=== PATIENT | male | born 1980 | race Caucasian/White ===

== ENCOUNTER 2019-11-27 22:10 | Observation (INO) ==
--- OUTSIDE RECORDS SUMMARY | 2019-11-27 22:12 | External Medical Summary | Continuity of Care Document ---
:1980 Author Name Ivette Grant Address Unavailable Unavailable , Care Team Providers Name Role Phone Anthony Grant Unavailable [email or web address] Active medical history not documented Allergies and Adverse Reactions Allergy history not documented Medications Medications not documented Procedures Procedures not documented Immunizations Immunizations not documented Plan of Treatment Planned Observations Planned Goals not documented Results No Known Results Results not documented
--- OUTSIDE RECORDS SUMMARY | 2019-11-27 22:13 | External Medical Summary | Continuity of Care Document ---
:1980 Author Name Ivette Grant Address Unavailable Unavailable , Care Team Providers Name Role Phone Anthony Grant Unavailable [email or web address] Active medical history not documented Allergies and Adverse Reactions Allergy history not documented Medications Medications not documented Procedures Procedures not documented Immunizations Immunizations not documented Plan of Treatment Planned Observations Planned Goals not documented Results No Known Results Results not documented
[2019-11-27] MEDS ORDERED: cefTRIAXone SODIUM 2,000 MG/70 ML BAG IV STA (22:26)
[2019-11-27] MEDS ORDERED: KETOROLAC TROMETHAMINE 15 MG/ML VIAL IV STA (22:26)
[2019-11-27] MEDS ORDERED: DIPHTHERIA/TETANUS/PERTUSSIS 0.5 ML SYR/VIAL IM ONE (22:26)
[2019-11-27] MEDS ORDERED: SODIUM CHLORIDE 0.9% 1000ML 1,000 ML IV ONE (22:28)
[2019-11-27 22:50] LABS: Basophils # (auto) 0.02 K/uL (0-0.2); Basophils % (auto) 0.2 %; Eosinophils # (auto) 0.07 K/uL (0-0.5); Eosinophils % (auto) 0.6 %; Hematocrit (blood only) 37.4 % (42-52); Hemoglobin 12.7 g/dL (14.0-18.0); Immature Granulocytes # (auto) 0.02 K/uL (0.00-0.02); Immature Granulocytes % (auto) 0.2 %; Lymphocytes # (auto) 1.15 K/uL (1.2-3.4); Lymphocytes % (auto) 9.6 %; Mean Corpuscular Hemoglobin 29.6 pg (25-34); Mean Corpuscular Volume 87.2 fL (80-100); Mean Platelet Volume 10.1 fL (7.4-10.4); Monocytes # (auto) 0.64 K/uL (0.11-0.59); Monocytes % (auto) 5.3 %; Neutrophils # (auto) 10.14 K/uL (1.4-6.5); Neutrophils % (auto) 84.1 %; Platelet Count 216 K/uL (130-400); RDW Coefficient of Variation 13.3 % (11.5-14.5); RDW Standard Deviation 42.5 fL (36.4-46.3); Red Blood Count 4.29 M/uL (4.7-6.1); White Blood Count 12.04 K/uL (4.8-10.8)
--- NOTE | 2019-11-27 22:52 | Emergency Department Note ---
History of Present Illness General Chief complaint: Finger Pain Stated complaint: INFECTED FINGER Time Seen by Provider: 11/27/19 22:15 History of Present Illness Maximum Pain Intensity: 6 This 39 yo presents to the ER complaining of finger infection Location: Left second finger Quality: Swollen Severity: Severe Duration: Past few days Timing: Started a few days ago Context: Swelling got much worse and patient came in Modifying factors: better with rest; worse with activity Patient thinks he might of gotten a splinter in the finger. 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 He states the finger is quite swollen and he cannot bend the finger. He is a type I diabetic. Patient feels achy. No documented fever. Patient denies chest pain, dyspnea, nausea, vomiting, diarrhea. No direct trauma to the finger. Home Medications Home Medications Medication Instructions Recorded Confirmed Type levothyroxine 200 mcg PO QAM 11/27/19 11/28/19 History insulin aspart U-100 [Novolog 0 unit SUBCUT AC 11/28/19 11/28/19 History Flexpen U-100 Insulin] insulin glargine [Lantus Solostar 50 unit SUBCUT HS 11/28/19 11/28/19 History U-100 Insulin] levothyroxine 100 mcg PO WK 11/28/19 11/28/19 History Allergies Allergy/AdvReac Type Severity Reaction Status Date / Time No Known Allergies Allergy Unverified 11/28/19 00:15 Past Med/Surg History Medical History Diabetes Hypothyroidism Surgical History No pertinent past surgical history Social History Smoking Status: Never smoker Feels Safe at Home: Yes Review of Systems A total of 10 systems reviewed and were otherwise negative Physical Exam Vital Signs Vital Signs - 24 hr 11/27/19 22:11 11/27/19 22:25 11/27/19 23:00 Temperature 37.3 C Temperature Source Oral Pulse Rate 103 H Pulse Rate [Finger] 91 H Pulse Rhythm [Finger] Regular Respiratory Rate 20 20 Respiratory Effort / Characteristics Non-Labored Spontaneous Non-Labored Spontaneous Respiratory Depth Normal Respiratory Pattern Regular Blood Pressure 166/85 H Blood Pressure [Right Arm] 148/93 H Blood Pressure Mean 112 Blood Pressure Mean [Right Arm] 111 Blood Pressure Position Sitting Blood Pressure Position [Right Arm] Lying Pulse Oximetry 97 98 97 Oxygen Delivery Method Room Air Room Air Room Air Sepsis Recent Fever Within 48 Hours No Sepsis New/Unexplained Change in Mental Status N/A Sepsis Action Taken by Nursing No Action Required 11/27/19 23:30 11/28/19 00:00 Temperature Temperature Source Pulse Rate Pulse Rate [Finger] 92 H 90 Pulse Rhythm [Finger] Regular Respiratory Rate 18 18 Respiratory Effort / Characteristics Non-Labored Spontaneous Non-Labored Spontaneous Respiratory Depth Normal Normal Respiratory Pattern Regular Regular Blood Pressure Blood Pressure [Right Arm] 145/91 H 147/87 H Blood Pressure Mean Blood Pressure Mean [Right Arm] 109 107 Blood Pressure Position Blood Pressure Position [Right Arm] Lying Lying Pulse Oximetry 97 97 Oxygen Delivery Method Room Air Room Air Sepsis Recent Fever Within 48 Hours Sepsis New/Unexplained Change in Mental Status Sepsis Action Taken by Nursing VITALS: Vitals are noted on the nurse's note and reviewed by myself. Vital signs stable. GENERAL: Pleasant male, in no acute distress, nondiaphoretic, well-developed well-nourished. SKIN: Capillary reflex less than 2 seconds. HEENT: Normocephalic. PERRLA. EOMI. Nares patent. Mucous membranes moist. Neck is supple without nuchal rigidity. HEART: Regular rate and rhythm LUNGS: Clear to auscultation bilaterally without wheezes, rales or rhonchi. No retractions or accessory muscle use. ABDOMEN: Positive bowel sounds x 4. Normal tympanic percussion. Soft, nontender, without masses or organomegaly. Laguna sign negative. No guarding or rebound tenderness. MUSCULOSKELETAL: No gross musculoskeletal defects. Right hand second finger erythematous and edematous extending to the palm. Patient cannot bend the finger. He can extend it but has great pain. No elbow tenderness, no axilla tenderness. No lymph node enlargement to the right eft arm. NEURO: Patient was alert and oriented to person place and time. Normal sensation to light and sharp touch. No focal neurological deficits. Course Administered Medications Discontinued Medications Ceftriaxone Sodium (Rocephin) 2,000 mg in 70 mls @ 140 mls/hr IV NOW STA Stop: 11/27/19 22:55 Last Infusion: 11/27/19 23:22 Dose: 0 mls/hr Documented by: [id number] Admin: 11/27/19 22:52 Dose: 140 mls/hr Documented by: [id number] Sodium Chloride (Nss 1000ml) 1,000 mls @ 999 mls/hr IV .Q1H1M ONE Stop: 11/27/19 23:28 Last Infusion: 11/27/19 23:58 Dose: 0 mls/hr Documented by: [id number] Admin: 11/27/19 22:56 Dose: 999 mls/hr Documented by: [id number] Ketorolac Tromethamine (Ketorolac Tromethamine 15 Mg/Ml Vial) 10 mg IV NOW STA Stop: 11/27/19 22:27 Last Admin: 11/27/19 22:52 Dose: 10 mg Documented by: [id number] Medical Decision Making Medical Records Attestation: I reviewed the patient's medical records. Home Medications Current Medication List: was personally reviewed by me Laboratory Data Attestation: I reviewed the patient's lab results. Result diagrams: 11/27/19 22:25 11/27/19 22:25 Lab Results 11/27/19 11/27/19 11/27/19 Range/Units 22:25 22:25 22:25 WBC 12.04 H (4.8-10.8) K/uL RBC 4.29 L (4.7-6.1) M/uL Hgb 12.7 L (14.0-18.0) g/dL Hct 37.4 L (42-52) % MCV 87.2 (80-100) fL MCH 29.6 (25-34) pg MCHC 34.0 (32-36) g/dL RDW Std Deviation 42.5 (36.4-46.3) fL RDW Coeff of Rajwinder 13.3 (11.5-14.5) % Plt Count 216 (130-400) K/uL MPV 10.1 (7.4-10.4) fL Immature Gran % (Auto) 0.2 % Neut % (Auto) 84.1 % Lymph % (Auto) 9.6 % [place] % (Auto) 5.3 % Eos % (Auto) 0.6 % Baso % (Auto) 0.2 % Neut # (Auto) 10.14 H (1.4-6.5) K/uL Lymph # (Auto) 1.15 L (1.2-3.4) K/uL [place] # (Auto) 0.64 H (0.11-0.59) K/uL Eos # (Auto) 0.07 (0-0.5) K/uL Baso # (Auto) 0.02 (0-0.2) K/uL Immature Gran # (Auto) 0.02 (0.00-0.02) K/uL ESR 18 H (0-14) mm/hr Sodium 139 (136-145) mmol/L Potassium 3.6 (3.5-5.1) mmol/L Chloride 104 (98-107) mmol/L Carbon Dioxide 24 (21-32) mmol/L Anion Gap 11.0 (3-11) BUN 10 (7-18) mg/dl Creatinine 0.93 (0.6-1.4) mg/dl Est Cr Clr Drug Dosing 142.0 ml/min Est GFR ( Amer) 119.4 Est GFR (Non-Af Amer) 103.0 BUN/Creatinine Ratio 11.1 (10-20) Glucose 155 H (70-99) mg/dl Lactate (0.4-2.0) mmol/L Calcium 9.1 (8.5-10.1) mg/dl Total Bilirubin 0.5 (0.2-1) mg/dl AST 40 H (15-37) U/L ALT 31 (12-78) U/L Alkaline Phosphatase 97 (45-117) U/L C-Reactive Protein 0.68 H (0-0.29) mg/dl Total Protein 7.9 (6.4-8.2) gm/dl Albumin 3.9 (3.4-5.0) gm/dl Globulin 4.0 (2.5-4.0) gm/dl Albumin/Globulin Ratio 1.0 (0.9-2) 11/27/19 Range/Units 22:30 WBC (4.8-10.8) K/uL RBC (4.7-6.1) M/uL Hgb (14.0-18.0) g/dL Hct (42-52) % MCV (80-100) fL MCH (25-34) pg MCHC (32-36) g/dL RDW Std Deviation (36.4-46.3) fL RDW Coeff of Rajwinder (11.5-14.5) % Plt Count (130-400) K/uL MPV (7.4-10.4) fL Immature Gran % (Auto) % Neut % (Auto) % Lymph % (Auto) % [place] % (Auto) % Eos % (Auto) % Baso % (Auto) % Neut # (Auto) (1.4-6.5) K/uL Lymph # (Auto) (1.2-3.4) K/uL [place] # (Auto) (0.11-0.59) K/uL Eos # (Auto) (0-0.5) K/uL Baso # (Auto) (0-0.2) K/uL Immature Gran # (Auto) (0.00-0.02) K/uL ESR (0-14) mm/hr Sodium (136-145) mmol/L Potassium (3.5-5.1) mmol/L Chloride (98-107) mmol/L Carbon Dioxide (21-32) mmol/L Anion Gap (3-11) BUN (7-18) mg/dl Creatinine (0.6-1.4) mg/dl Est Cr Clr Drug Dosing ml/min Est GFR ( Amer) Est GFR (Non-Af Amer) BUN/Creatinine Ratio (10-20) Glucose (70-99) mg/dl Lactate 0.8 (0.4-2.0) mmol/L Calcium (8.5-10.1) mg/dl Total Bilirubin (0.2-1) mg/dl AST (15-37) U/L ALT (12-78) U/L Alkaline Phosphatase (45-117) U/L C-Reactive Protein (0-0.29) mg/dl Total Protein (6.4-8.2) gm/dl Albumin (3.4-5.0) gm/dl Globulin (2.5-4.0) gm/dl Albumin/Globulin Ratio (0.9-2) Imaging Data Attestation: I personally reviewed and interpreted this imaging study as follows: MDM Narrative Prior records reviewed and summarized as above. Triage Nursing notes reviewed. Additional history obtained from family. The patient's history was concerning for swelling and redness of the skin. Differential diagnosis: Etiologies such as tendon infection, cellulitis, abscess, MRSA infection, DVT, necrotizing fasciitis, dermatitis, drug eruption, as well as others were entertained.. Physical examination: As above ER treatment provided: Rocephin, Toradol On reassessment the patient felt better. Diagnostics interpreted by me: The labs revealed mild leukocytosis, mildly elevated inflammatory markers Blood cultures pending, wound culture pending Negative lactic acid Imaging studies: Finger x-ray with soft tissue swelling without fracture or foreign body per my interpretation Consultation: A consultation was placed with orthopedics, Dr. Love. The case was discussed and diagnostics were reviewed. He recommends splint, elevation and medical a dmission. He wants the patient n.p.o. after midnight for possible surgical evaluation. I spoke to Dr. Alvarado and will evaluate and admit the patient. The patient was evaluated in the ER for further treatment. Splinting Indication: Hand infection Location: Right hand Verbal consent obtained. Risks and benefits were explained with the usual customary discussion. The injured extremity was identified. The patient was prepped and measured for the placement of a volar ortho-glass splint. Splint applied in the standard fashion over a layer of webril and secured using an elastic bandage. Set into a position of function. Normal neurovascular status after placement verified by me. The patient tolerated the procedure well and the care of the splint was discussed with the patient/family. No complications. This appears to be cellulitis of the right second finger with concerns for ten don involvement. Patient cannot fully extend or bend the finger. Patient was given antibiotics. Medicine and orthopedics were consulted. He will be admitted. Patient is agreeable. By the evaluation outlined above emergent etiologies such as abscess, necrotizing fasciitis, DVT, as well as others were deemed relatively unlikely. The pt informed about the findings as listed above. All questions were answered and pleased with the treatment. The chart was completed utilizing [employer] voice recognition software. Grammatical errors, random word insertions, pronoun errors, and incomplete sentences are an occassional consequence of this system due to software limitations, ambient noise, and hardware issues. Any formal questions or concerns about the content, text, or information contained within the body of this dictation should be directly addressed to the physician educational assistant for clarification. Impression & Plan Cellulitis of finger of right hand Discharge Plan Visit Data Chief Complaint: Finger Pain Stated Complaint: INFECTED FINGER ED Provider: Dov Domingo ED Midlevel Provider: Mady Dunham Discharge Problem: Cellulitis of finger of right hand Patient Disposition: Being Evaluated by Hospitalist Condition: Good Forms Stand Alone Forms: [facility] Prescriptions Prescriptions: No Action levothyroxine 200 mcg tablet 200 mcg PO QAM RF: 0 levothyroxine 200 mcg tablet 100 mcg PO WK RF: 0 Lantus Solostar U-100 Insulin 100 unit/mL (3 mL) insulin pen 50 unit SUBCUT HS RF: 0 insulin aspart U-100 [Novolog Flexpen U-100 Insulin] 100 unit/mL (3 mL) insulin pen 0 unit SUBCUT AC RF: 0 Referrals Referrals: Philipp Linder MD [Primary Care Provider] -
[2019-11-27 23:04] LABS: Albumin Level 3.9 gm/dl (3.4-5.0); BUN Creatinine Ratio 11.1 (10-20); C Reactive Protein 0.68 mg/dl (0-0.29); Calcium 9.1 mg/dl (8.5-10.1); Est GFR (African American) 119.4; Potassium 3.6 mmol/L (3.5-5.1)
[2019-11-27 23:07] LABS: Bilirubin,Total 0.5 mg/dl (0.2-1); Total Protein 7.9 gm/dl (6.4-8.2)
--- NOTE | 2019-11-27 23:44 | Orthopedic Consultation ---
Date of Consultation November 27, 2019 Assessment & Plan (1) Cellulitis of finger of right hand: On exam this morning, there was no evidence of fusiform swelling or other signs for urgent flexor tenosynovitis. Given the described dramatic improvement with elevation antibiotics overnight, I like to see how he does the rest the day. Canceled n.p.o. I will reevaluate on exam this afternoon. Continue parenteral antibiotics. Splint was adjusted. The splint is for relative soft tissue mobilization. Strict elevation is indicated. History of Present Illness Reason for Consultation: Soft tissue infection of the hand History of Present Illness 39-year-old type I diabetic reports has had 1 day of progressive redness and swelling to his index finger after sustaining a punctate injury. He is unsure of how but he thinks he may have gotten a splinter was doing some household work. He has had no history of similar symptoms. Does not have a history of soft tissue infections. He denies any numbness or tingling. He was admitted for possible flexor tenosynovitis versus cellulitis of the index finger. Allergies Allergy/AdvReac Type Severity Reaction Status Date / Time No Known Allergies Allergy Unverified 11/28/19 00:15 Home Medications Home Medications Medication Instructions Recorded Confirmed Type levothyroxine 200 mcg PO QAM 11/27/19 11/28/19 History insulin aspart U-100 [Novolog 0 unit SUBCUT AC 11/28/19 11/28/19 History Flexpen U-100 Insulin] insulin glargine [Lantus Solostar 50 unit SUBCUT HS 11/28/19 11/28/19 History U-100 Insulin] levothyroxine 100 mcg PO WK 11/28/19 11/28/19 History Patient History Medical History Diabetes Hypothyroidism Surgical History No pertinent past surgical history Social History Smoking Status: Never smoker Hx Alcohol Use: Yes Alcohol type: wine Hx Substance Use: No Preferred Language: Occitan Communication Ability: Effective Home School Coordinator Required: No Beliefs That Will Affect Care: Confucianism Confucianism Beliefs: Gnosticism Temple, no current practices as it is not Lent Current Living Situation: Family Other Information That Helps Us Care for You: Yes (self-described "germophobe") Feels Safe at Home: Yes Safety Concerns: Feels Safe At This Time Assistive Devices: None Assistive Devices Comment: Front tooth fake- has bridge Review of Systems Review of Systems: All systems reviewed & are unremarkable except as noted in HPI & below Respiratory: no dyspnea and no pain on inspiration Cardiovascular: no chest pain and no lightheadedness Gastrointestinal: no nausea and no vomiting Musculoskeletal: no back pain and no neck pain Integumentary: no rash and no lesions Neurologic: no numbness and no paresthesia Physical Exam Physical Exam: Right upper extremity: The hand has diffuse edema. The edema is centered over the index finger. There is a punctate wound on the ulnar palmar aspect. There is no active drainage. He has guarded motion of his IP joints. He has near full motion of his MP joint. He is mildly tender along the course of the flexor tendon. There is no fusiform swelling. There is no areas of fluctuance on palpation. Sensation is grossly intact to light touch. Constitutional: well developed and well nourished; no acute distress and not intoxicated appearing ENMT: external ear and nose normal, oropharynx normal Respiratory: normal respiratory effort; no respiratory distress Cardiovascular: Extremities: normal capillary refill; no edema Skin: no rashes, warm and dry Psychiatric: A+Ox3, euthymic affect Results & Data ([facility]) Vital Signs (Past 12 Hours) Vital Signs Temp Pulse Resp BP Pulse Ox 11/27/19 22:25 98 11/27/19 22:11 37.3 C 103 H 20 166/85 H 97 Radiographs of the index finger show no foreign bodies. PG Care Time/CCT Total # of Minutes Spent Total Time Spent with Patient: Total time spent is greater than 50% in coordination of care (as documented) at patient's floor/unit and/or counseling patient: Coding Level of Care Code 54854 Inpt Consult Level 3 Diagnoses Cellulitis of finger of right hand L03.011
[2019-11-28] MEDS ORDERED: DIPHTHERIA/TETANUS/PERTUSSIS 0.5 ML SYR/VIAL IM ONE (00:56)
[2019-11-28] MEDS ORDERED: MoRPHine SULFATE 4 MG/ML 1 ML CARP\\VIAL IV PRN (01:54)
[2019-11-28] MEDS ORDERED: SODIUM CHLORIDE 0.9% 1000ML 1,000 ML IV SCH ×2 (01:54→21:30)
[2019-11-28] MEDS ORDERED: PIPERACILL/TAZOBAC CONSULT ACTIVE PRN (01:54)
[2019-11-28] MEDS ORDERED: Nursing to Pharmacy Communication SCH ×3 (02:00→23:30)
[2019-11-28] MEDS: ONDANSETRON INJ 2 MG/ML 2 ML VIAL IV PRN ×2 (02:18→09:40)
[2019-11-28] MEDS ORDERED: GLUCOSE 40% GEL 15 GM TUBE PO PRN (02:30)
[2019-11-28] MEDS ORDERED: DEXTROSE 50% 50 ML SYRINGE IV PRN (02:30)
[2019-11-28] MEDS ORDERED: GLUCOSE 10 TABS/TUBE PO PRN (02:30)
[2019-11-28] MEDS ORDERED: GLUCAGON FOR INJ 1 MG VIAL SQ PRN (02:30)
[2019-11-28] MEDS ORDERED: CARBOHYDRATES FOR HYPOGLYCEMIA PO PRN (02:30)
[2019-11-28] MEDS ORDERED: PIPERACILLIN/TAZOBACTAM 3.375 GM in DEXTROSE 5% 100 ML IV SCH (02:30)
[2019-11-28] MEDS: ACETAMINOPHEN 325 MG TAB PO PRN ×2 (02:40→11:17)
--- NOTE | 2019-11-28 02:42 | History and Physical Report ---
DATE OF ADMISSION: 11/28/2019 CHIEF COMPLAINT: Right index finger infection. HISTORY OF PRESENT ILLNESS: A 39-year-old male with past medical history significant for type 1 diabetes, hypothyroidism, Lyme disease, who presents with a right index finger infection. The patient was working on the floor of the house when he had a splinter injury to his right index finger last Thursday. He was keeping an eye on it. He was also working on the bathrooms . Yesterday the finger got swollen and he was having pain and also felt some chills and nausea, so he came to the ER. Evaluated by ortho, recommended IV antibiotics and to be evaluated in the a.m. and if not getting better, plan for I and D in the a.m. He received Toradol. Currently, pain is under control. Resting comfortably and hemodynamically stable. Denies any other complaints. The nausea is improved. No fevers, no chest pain, no shortness of breath, no cough, no headache, no blurred vision, no earache, no runny nose, no sore throat, no dysphagia, no abdominal pain. Normal bowel and bladder movements. No rashes. No edema. ALLERGIES: No known drug allergies. PAST MEDICAL HISTORY: As mentioned above. PAST SURGICAL HISTORY: None. MEDICATIONS: The patient is on Lantus SoloSTAR 50 units subQ at bedtime, levothyroxine 200 mcg p.o. daily and 100 mcg once a week, insulin NovoLog FlexPen a.c. FAMILY HISTORY: Significant for father had clotting disorder, prostate cancer; mother has bicuspid valve; sister had thyroid disorder. SOCIAL HISTORY: . No smoking. Alcohol 2-3 times a week. No drug use. REVIEW OF SYSTEMS: As per HPI. Rest of the review of systems negative. PHYSICAL EXAMINATION: GENERAL: The patient is of moderate build, not in acute distress. VITAL SIGNS: Temperature 37.3, pulse 90, respiratory rate 18, blood pressure 147/87, oxygen 97% on room air. HEENT: No pallor. Pupils equal, round, reactive to light. Oral mucosa moist. NECK: No neck masses seen. CARDIOVASCULAR: S1, S2 heard, regular rate and rhythm, no murmur, no gallop. RESPIRATORY SYSTEM: Normal AP diameter. No accessory muscle use. No wheezing, no crackles. ABDOMEN: Soft, bowel sounds present, nontender. No distention. CENTRAL NERVOUS SYSTEM: Cranial nerves II-XII grossly intact, nonfocal. EXTREMITIES: Right hand and arm is in dressing and wrapped. No edema or erythema seen in the lower extremity. LABORATORY DATA: WBC 12.04, hemoglobin 12.7, hematocrit 37.4, platelets 216. ESR 18. Sodium 139, potassium 3.6, chloride 104, bicarbonate 24, BUN 10, creatinine 0.9, serum glucose 155. Lactate 0.8, calcium 9.1, total bilirubin 0.5, AST 40, ALT 31, alkaline phosphatase 95. C-reactive protein 0.6. ASSESSMENT AND PLAN: This is a 39-year-old male who presents with right index finger infection. 1. Right index finger infection with history of type 1 diabetes. Seen by ortho and plan to continue iv abx and to be reevaluated in am for need for I and D. . Received Rocephin in the ER. Will continue with IV Zosyn. Will follow the cultures. If no improvement, plan for I and D in a.m. Currently n.p.o. Pain control, IV fluids. 2. Diabetes. Continue his home Lantus and sliding scale. If continue to be npo tomorrow need to cut his long acting insulin. 3. Hypothyroidism. Continue Synthroid. 4. Deep venous thrombosis prophylaxis, sequential compression devices. 5. Disposition: Observation in medical floor. Expect to discharge home and follow with family doctor. Level 1 full code. MTDD
[2019-11-28] MEDS ORDERED: INSULIN ASPART 100 UNITS/ML 3 ML PEN SC SCH (06:00)
[2019-11-28] MEDS: LEVOTHYROXINE SODIUM 200 MCG TABLET PO SCH (06:21)
[2019-11-28] MEDS ORDERED: LEVOTHYROXINE SODIUM 200 MCG TABLET PO SCH (06:30)
--- NOTE | 2019-11-28 06:59 | XRay Report ---
XR finger(s) RT min 2V CLINICAL HISTORY: Infection. Possible foreign body. COMPARISON: None. DISCUSSION: There is soft tissue swelling. No fractures are visualized. No foreign bodies are delinea jefe. There are no destructive lesions. IMPRESSION: 1. No acute fractures 2. No radiopaque foreign bodies identified 3. Soft tissue swelling ACT 112: Negative or not required by law. Electronically signed by: Vasiliy Hudson M.D. 11/28/2019 6:57 AM
[2019-11-28 07:08] LABS: Basophils # (auto) 0.02 K/uL (0-0.2); Basophils % (auto) 0.2 %; Eosinophils # (auto) 0.03 K/uL (0-0.5); Eosinophils % (auto) 0.3 %; Hematocrit (blood only) 37.5 % (42-52); Hemoglobin 12.3 g/dL (14.0-18.0); Immature Granulocytes # (auto) 0.01 K/uL (0.00-0.02); Immature Granulocytes % (auto) 0.1 %; Lymphocytes # (auto) 1.17 K/uL (1.2-3.4); Lymphocytes % (auto) 11.1 %; Mean Corpuscular Hemoglobin 28.9 pg (25-34); Mean Corpuscular Hgb Conc 32.8 g/dL (32-36); Mean Corpuscular Volume 88.2 fL (80-100); Mean Platelet Volume 10.4 fL (7.4-10.4); Monocytes # (auto) 0.56 K/uL (0.11-0.59); Monocytes % (auto) 5.3 %; Neutrophils # (auto) 8.71 K/uL (1.4-6.5); Platelet Count 221 K/uL (130-400); RDW Coefficient of Variation 13.6 % (11.5-14.5); RDW Standard Deviation 44.3 fL (36.4-46.3); Red Blood Count 4.25 M/uL (4.7-6.1)
[2019-11-28] MEDS: PIPERACILLIN/TAZOBACTAM 3.375 GM in DEXTROSE 5% 100 ML IV SCH ×3 (07:35→23:14)
[2019-11-28 07:43] LABS: BUN Creatinine Ratio 9.8 (10-20); Calcium 8.4 mg/dl (8.5-10.1); Creatinine Clr Calc Pharmacy 148.9 ml/min; Est GFR (African American) 124.8; Est GFR (Non-African American) 107.7; Magnesium 1.8 mg/dl (1.8-2.4); Potassium 3.5 mmol/L (3.5-5.1)
[2019-11-28 07:46] LABS: Estimated Average Glucose 183 mg/dl
[2019-11-28] MEDS ORDERED: POTASSIUM CHLORIDE 20 MEQ TABCR PO STA (08:39)
--- NOTE | 2019-11-28 08:44 | Hospitalist Progress Note ---
Date of Service November 28, 2019 Assessment & Plan (1) Cellulitis of finger of right hand: -as per history and physical "A 39-year-old male with past medical history significant for type 1 diabetes, hypothyroidism, Lyme disease, who presents with a right index finger infection. The patient was working on the floor of the house when he had a splinter injury to his right index finger last Thursday." -Received Rocephin in the ER, 11/27/2019 cultures are pending results -admitting nocturnalist upgraded the antibiotic to IV Zosyn -orthopedics following the patient. patient reports that he was been seen by orthopedic service there are no plans for any incision and drainage today on 11/28/2019. Continue the IV Zosyn, prn acetaminophen for fever or pain. (2) Type 1 diabetes mellitus: -at home he is usually on Lantus 50 units qhs with sliding scale insulin -since it is uncertain whether patient will need Incision and drainage on 11/29/2019, will tentatively schedule the Lantus as 25 units qhs for now (3) Hypothyroidism: -continue home dose levothyroxine Deep venous thrombosis prophylaxis, sequential compression devices. Full Code Admission and Anticipated Discharge Date Admission Date: November 28, 2019 Subjective orthopedics following the patient. patient reports that he was been seen by orthopedic service there are no plans for any incision and drainage today on 11/28/2019. Continue the IV Zosyn, prn acetaminophen for fever or pain. Patient denies any acute shortness of breath today. breathing on room air. no chest pain. no abdomen pain. no other acute symptoms Review of Systems Review of Systems: All systems reviewed & are unremarkable except as noted in Subjective Physical Exam Constitutional: comfortable Eyes: PERRL, conjunctivae normal, anicteric sclerae EOM intact bilaterally ENMT: external ear and nose normal, oropharynx normal Neck: normal visual inspection Respiratory: normal respiratory effort, lungs clear to auscultation Cardiovascular: Rate/Rhythm: regular rate Gastrointestinal (Abdomen): normal bowel sounds, soft, nontender, no hepatosplenomegaly Musculoskeletal: right upper extremity splint Neurologic: PERRL, EOMI, accommodation nl, no face palsy, no dysarthria Psychiatric: A+Ox3, euthymic affect Results & Data Results & Data ([facility]) Vital Signs (Past 12 Hours) Vital Signs Temp Pulse Pulse Resp BP BP Pulse Ox 09/21/20 01:58 38 C H 89 16 154/85 H 97 11/28/19 00:00 90 18 147/87 H 97 11/27/19 23:30 92 H 18 145/91 H 97 11/27/19 23:00 91 H 20 148/93 H 97 11/27/19 22:25 98 11/27/19 22:11 37.3 C 103 H 20 166/85 H 97
[2019-11-28] MEDS: MAGNESIUM OXIDE 400 MG TAB PO SCH (09:40)
[2019-11-28] MEDS: INSULIN ASPART 100 UNITS/ML 3 ML PEN SC SCH ×3 (13:02→21:37)
[2019-11-28] MEDS ORDERED: KETOROLAC TROMETHAMINE 15 MG/ML VIAL IV ONE (13:11)
[2019-11-28] MEDS: SENNA 8.6 MG TAB PO SCH (13:58)
--- NOTE | 2019-11-28 14:02 | XRay Report ---
RIGHT FOREARM 2 VIEWS CLINICAL HISTORY: Puncture wound in the hand. Infection. FINDINGS: AP and lateral views of the right forearm are obtained. No prior studies are available for comparison at the time of dictation. The skeletal structures are well mineralized. There is no radiog raphic evidence of forearm fracture. The elbow and wrist joints are grossly maintained. Mild soft tis margi edema is suggested in the distal forearm. No subcutaneous gas or radiodense foreign body is ident ified. IMPRESSION: Soft tissue swelling with no acute bony abnormality identified. Electronically signed by: Rufino Mora M.D. 11/28/2019 2:00 PM
--- NOTE | 2019-11-28 14:04 | XRay Report ---
RIGHT HUMERUS 2 VIEWS CLINICAL HISTORY: Puncture wound in the hand. Infection and edema. FINDINGS: AP and lateral views of the right humerus are obtained. No prior studies are available for comparison at the time of dictation. The skeletal structures are well mineralized. There is no radiog raphic evidence of humeral fracture. The elbow and shoulder joints are grossly maintained. There is n o bony erosion or periostitis. A small osteochondroma is suggested arising from the proximal humeral shaft. The overlying soft tissues are normal as imaged. No subcutaneous gas or radiodense foreign bod y is identified. The imaged right lung parenchyma appears clear. IMPRESSION: No acute bony abnormality is identified. Electronically signed by: Rufino Mora M.D. 11/28/2019 2:03 PM
[2019-11-28] MEDS ORDERED: INSULIN GLARGINE SOLOSTAR 100 UNITS/ML 3 ML PEN SQ SCH ×2 (21:00)
--- NOTE | 2019-11-28 22:17 | Orthopedic Progress Note ---
Date of Service November 28, 2019 Assessment & Plan (1) Cellulitis of finger of right hand: No significant change on interval exams today. No identifiable abscess, florid tenosynovitis, or other surgical needs at this point - will continue to follow. Rec: - continue parenteral abx - Prefer soft tissue rest with removable splint and strict elevation - Will eval in the am - NPO at midnight until exam around 8:30a - Consider trending ESR/CRP - If not clinically changed, consider advanced imaging Present on Admission?: Yes Subjective Evaluated this evening Reports today's event was development of erythema near IV site just proximal to splint, which has now resolved. +appetite No malaise no signif pain Review of Systems Review of Systems: All systems reviewed & are unremarkable except as noted in HPI & below Physical Exam Physical Exam: RUE: Erythema nearly completely resolved on ulnar border of index finger. Remains with edema centered at palmar and dorsal PIPJ. Diffuse tenderness along palmar 2nd ray to A1 aftab. No fusiform swelling. FAROM elbow and no antecubital tenderness. No axillary node tenderness. Erythema present on ulnar side of IF. No obvious areas of abscess. PIPJ not painful under PROM - 'feels like pain/stiff in the skin, not bone' Constitutional: WD/WN, vitals as above no acute distress and not ill appearing Results & Data ([facility]) Vital Signs (Past 12 Hours) Vital Signs Temp Pulse Resp BP Pulse Ox 11/28/19 15:12 37.3 C 74 18 127/77 97 11/28/19 12:56 37.4 C PG Care Time/CCT Total # of Minutes Spent Total Time Spent with Patient: Total time spent is greater than 50% in coordination of care (as documented) at patient's floor/unit and/or counseling patient: Coding Level of Care Code None Diagnoses Cellulitis of finger of right hand L03.011
[2019-11-29] MEDS: LEVOTHYROXINE SODIUM 200 MCG TABLET PO SCH (05:35)
[2019-11-29] MEDS ORDERED: INSULIN ASPART 100 UNITS/ML 3 ML PEN SC SCH (06:00)
[2019-11-29 06:09] LABS: Basophils # (auto) 0.02 K/uL (0-0.2); Basophils % (auto) 0.3 %; Eosinophils # (auto) 0.09 K/uL (0-0.5); Eosinophils % (auto) 1.3 %; Hematocrit (blood only) 34.1 % (42-52); Hemoglobin 11.6 g/dL (14.0-18.0); Immature Granulocytes # (auto) 0.01 K/uL (0.00-0.02); Immature Granulocytes % (auto) 0.1 %; Lymphocytes # (auto) 1.17 K/uL (1.2-3.4); Lymphocytes % (auto) 16.3 %; Mean Corpuscular Hemoglobin 30.5 pg (25-34); Mean Corpuscular Volume 89.7 fL (80-100); Mean Platelet Volume 10.5 fL (7.4-10.4); Monocytes # (auto) 0.64 K/uL (0.11-0.59); Monocytes % (auto) 8.9 %; Neutrophils # (auto) 5.25 K/uL (1.4-6.5); Neutrophils % (auto) 73.1 %; Platelet Count 193 K/uL (130-400); RDW Coefficient of Variation 13.6 % (11.5-14.5); RDW Standard Deviation 45.2 fL (36.4-46.3); White Blood Count 7.18 K/uL (4.8-10.8)
[2019-11-29 06:46] LABS: Albumin Level 2.9 gm/dl (3.4-5.0); BUN Creatinine Ratio 6.6 (10-20); Calcium 8.3 mg/dl (8.5-10.1); Creatinine Clr Calc Pharmacy 148.9 ml/min; Est GFR (African American) 124.8; Est GFR (Non-African American) 107.7; Potassium 3.5 mmol/L (3.5-5.1)
[2019-11-29 06:49] LABS: Albumin Globulin Ratio 0.7 (0.9-2); Bilirubin,Total 0.6 mg/dl (0.2-1); Globulin 3.9 gm/dl (2.5-4.0); Total Protein 6.8 gm/dl (6.4-8.2)
[2019-11-29] MEDS ORDERED: POTASSIUM CHLORIDE / WTR 10 MEQ/100 ML PLCT IV ONE (07:15)
--- NOTE | 2019-11-29 07:54 | Hospitalist Progress Note ---
Date of Service November 29, 2019 Assessment & Plan (1) Cellulitis of finger of right hand: Cellulitis of finger of right hand due to superficial foreign body of right index finger -as per history and physical "A 39-year-old male with past medical history significant for type 1 diabetes, hypothyroidism, Lyme disease, who presents with a right index finger infection. The patient was working on the floor of the house when he had a splinter injury to his right index finger last Jayant." -Received Rocephin in the ER, 11/27/2019 cultures are pending results -admitting nocturnalist upgraded the antibiotic to IV Zosyn -11/28/2019: orthopedics following the patient. patient reports that he was been seen by orthopedic service there are no plans for any incision and drainage on 11/28/2019. Continue the IV Zosyn, prn acetaminophen for fever or pain. Nurse reports that there is erythema above the right brachial area that is not covered by the splint. This is affirmed on my exam. discussed with nurse to take off the splint that runs below the right brachial area. Have asked the nurse to remove the IV site from the right brachial area and ice to be applied to right arm. patient already on IV antibiotic and acetaminophen. Patient may have IV morphine to reduce pain. Patient's right upper extremity X ray on 11/28/2019 did not show any subcutaneous gas. -11/29/2019: Patient seen in AM by hospitalist and currently NPO while awaiting further orthopedic evaluation. The right arm erythema is gone but the right index finger with erythema and swollen. He has elevated ESR and CRP. admission blood cultures so far no growth to date (2) Type 1 diabetes mellitus: -at home he is usually on Lantus 50 units qhs with sliding scale insulin -since it was uncertain whether patient will need Incision and drainage on 11/29/2019, he was scheduled the Lantus as 25 units qhs for 11/28/2019 (3) Hypothyroidism: -continue home dose levothyroxine Deep venous thrombosis prophylaxis, sequential compression devices. Full Code Patient has a primary care appointment scheduled for 12/05/2019 2:00 PM Provider Philipp Linder III, MD [facility] Admission and Anticipated Discharge Date Admission Date: November 28, 2019 Subjective Patient seen in AM by hospitalist and currently NPO while awaiting further orthopedic evaluation. The right arm erythema is gone but the right index finger with erythema and swollen. He has elevated ESR and CRP. admission blood cultures so far no growth to date no chest pain. no abdomen pain. no vomiting. no dizziness. no headache. no dizziness. no shortness of breath. breathing on room air Review of Systems Review of Systems: All systems reviewed & are unremarkable except as noted in Subjective Physical Exam Constitutional: comfortable Eyes: PERRL, conjunctivae normal, anicteric sclerae EOM intact bilaterally ENMT: external ear and nose normal, oropharynx normal Neck: normal visual inspection Respiratory: normal respiratory effort, lungs clear to auscultation Cardiovascular: Rate/Rhythm: regular rate Gastrointestinal (Abdomen): normal bowel sounds, soft, nontender, no he patosplenomegaly Musculoskeletal: Head/Neck/Chest: normocephalic The right arm erythema is gone but the right index finger with erythema and swollen. Neurologic: PERRL, EOMI, accommodation nl, no face palsy, no dysarthria Psychiatric: A+Ox3, euthymic affect Results & Data Results & Data ([facility]) Vital Signs (Past 12 Hours) Vital Signs Temp Pulse Resp BP Pulse Ox 11/29/19 07:28 37.4 C 73 18 142/77 H 96 11/28/19 23:10 37.5 C 80 12 131/73 97
[2019-11-29] MEDS: PIPERACILLIN/TAZOBACTAM 3.375 GM in DEXTROSE 5% 100 ML IV SCH ×3 (08:15→23:17)
[2019-11-29] MEDS ORDERED: ePHEDrine sulfate 50 MG/ML AMP IV PRN (09:12)
[2019-11-29] MEDS ORDERED: ONDANSETRON INJ 2 MG/ML 2 ML VIAL IV PRN (09:12)
[2019-11-29] MEDS ORDERED: ATROPINE SULFATE 0.1 MG/ML 10ML SYR IV PRN (09:12)
[2019-11-29] MEDS ORDERED: HYDROmorphone INJ 1 MG/ML SYRINGE IV PRN (09:12)
[2019-11-29] MEDS: MAGNESIUM OXIDE 400 MG TAB PO SCH (09:13)
[2019-11-29] MEDS: SENNA 8.6 MG TAB PO SCH (09:13)
--- NOTE | 2019-11-29 09:17 | Anesthesiology Consultation ---
Date of Service November 29, 2019 Assessment & Plan (1) Encounter for pre-operative examination: Chart Review Chart Review: Acceptable Risk for Surgery and Patient NOT seen in Pre Admission Testing Consults Requested none History Surgery Operation Date: 11/29/19 10:50 Proposed Procedures p Right Index Finger Incision and Drainage - Aquilino Love Height/Weight Height: 6 ft 2 in Weight: 112.9 kg Allergies Allergy/AdvReac Type Severity Reaction Status Date / Time No Known Allergies Allergy Unverified 11/28/19 00:15 Medications Home Medications Medication Instructions Recorded Confirmed Last Taken levothyroxine 200 mcg PO QAM 11/27/19 11/28/19 11/27/19 insulin aspart U-100 [Novolog 0 unit SUBCUT AC 11/28/19 11/28/19 11/27/19 Flexpen U-100 Insulin] insulin glargine [Lantus Solostar 50 unit SUBCUT HS 11/28/19 11/28/19 11/27/19 U-100 Insulin] levothyroxine 100 mcg PO WK 11/28/19 11/28/19 11/27/19 Active Medications Generic Name Dose Route Start Last Admin Trade Name Freq PRN Reason Stop Dose Admin Acetaminophen 650 mg 11/28/19 01:54 11/28/19 11:17 Acetaminophen 325 Mg Tab PO 12/28/19 01:53 650 mg Q4H PRN Administration pain/fever Piperacillin Sod/Tazobactam 115 mls @ 28.75 mls/hr 11/28/19 08:00 11/29/19 08:15 Sod 3.375 gm/ Dextrose IV 12/05/19 07:59 28.8 mls/hr Q8H SCARLETT Administration Protocol Insulin Aspart 0 units 11/29/19 06:00 11/29/19 05:54 Insulin Aspart 100 Units/Ml 3 Ml Pen SC 12/29/19 05:59 Not Given Q6 SCARLETT Insulin Glargine 25 units 11/28/19 21:00 11/28/19 22:16 Insulin Glargine Solostar 100 Units/Ml 3 Ml Pen SQ 12/28/19 20:59 25 units HS SCARLETT Administration Levothyroxine Sodium 200 mcg 11/28/19 06:30 11/29/19 05:35 Levothyroxine Sodium 200 Mcg Tablet PO 12/28/19 06:29 200 mcg [id number] SCARLETT Administration Magnesium Oxide 400 mg 11/28/19 09:00 11/29/19 09:13 Magnesium Oxide 400 Mg Tab PO 12/28/19 08:59 400 mg QAM SCARLETT Administration Miscellaneous 15 - 30 gm 11/28/19 02:30 11/28/19 12:06 Carbohydrates For Hypoglycemia PO 12/28/19 02:29 15 gm UD PRN Administration Hypoglycemia Treatment Morphine Sulfate 3 mg 11/28/19 01:54 11/29/19 05:31 Morphine Sulfate 4 Mg/Ml 1 Ml Carp\Vial IV 12/12/19 01:53 3 mg Q3H PRN Administration Pain Ondansetron HCl 4 mg 11/28/19 01:54 11/28/19 09:40 Ondansetron Inj 2 Mg/Ml 2 Ml Vial IV 12/28/19 01:53 4 mg Q6H PRN Administration Nausea Sennosides 8.6 mg 11/28/19 13:00 11/29/19 09:13 Senna 8.6 Mg Tab PO 12/28/19 12:59 8.6 mg QAM SCARLETT Administration NPO Date Last Intake of Fluids: 11/29/19 Time Last Intake of Fluids: 05:35 Last Intake of Fluids Comment: sip of water Date Last Intake of Solids: 11/29/19 Time Last Intake of Solids: 05:35 Last Intake of Solids Comment: synthroid pill Past Medical History Medical History Diabetes Hypothyroidism Exercise / Class Metabolic Activity II 4-5 Yardwork/Stairs/Walk up hill Past Surgical History Surgical History No pertinent past surgical history Past Anesthesia History No Hx of Anesthesia Complications and No Family Hx of Anesthesia Complications History of PONV No Hx of PONV and No Hx of Motion Sickness Social History Smoking Status: Never smoker Do You Dip or Chew Tobacco: No Hx Alcohol Use: Yes Alcohol type: wine alcohol intake frequency: holidays/special occasions only Hx Substance Use: No Physical Exam Vital Signs Last Vital Signs Temp 37.4 C 11/29/19 07:28 Pulse 73 11/29/19 07:28 Resp 18 11/29/19 07:28 BP 142/77 H 11/29/19 07:28 Pulse Ox 96 11/29/19 07:28 Testing Laboratory Results 11/29/19 05:00 11/29/19 05:00 Hemoglobin A1c 8.0 % (4.5-5.6) H 11/28/19 06:39 11/27/19 22:25 Aerobic Blood Culture - Preliminary Blood No growth in Aerobic bottle after 24 hours. Anaerobic Blood Culture - Preliminary No growth in Anaerobic bottle after 24 hours. 11/27/19 22:30 Aerobic Blood Culture - Preliminary Blood No growth in Aerobic bottle after 24 hours. Anaerobic Blood Culture - Preliminary No growth in Anaerobic bottle after 24 hours. 11/27/19 22:00 Gram Stain - Final Finger 11/29/19 11/29/19 11/28/19 09:21 05:46 23:56 POC Glucose 162 H 137 H 169 H covid neg 11/28/2019.
[2019-11-29] MEDS ORDERED: ONDANSETRON INJ 2 MG/ML 2 ML VIAL ONE (09:24)
[2019-11-29] MEDS ORDERED: DEXAMETHASONE SOD INJ 4 MG/ML VIAL ONE (09:24)
[2019-11-29] MEDS ORDERED: PROPOFOL IV EMULSION 10 MG/ML 20 ML VIAL IV ONE (09:24)
[2019-11-29] MEDS ORDERED: LIDOCAINE HCL 2% 2 ML VIAL/AMP(20MG/ML) INFIL ONE (09:24)
[2019-11-29] MEDS ORDERED: GLYCOPYRROLATE 0.2 MG/ML VIAL ONE (09:24)
[2019-11-29] MEDS ORDERED: MIDAZOLAM HCL 1 MG/ML 2ML VIAL ONE (09:25)
[2019-11-29] MEDS ORDERED: fentaNYL citrate 100 MCG/2 ML VIAL ONE (09:25)
[2019-11-29] MEDS ORDERED: NEOSTIGMINE METHYLSULFATE 1 MG/ML 10ML VIAL ONE (09:25)
--- NOTE | 2019-11-29 09:26 | Orthopedic Progress Note ---
Date of Service November 29, 2019 Assessment & Plan (1) Cellulitis of finger of right hand: He remains with signs of flexor tenosynovitis and potentially second and third ray collar-button abscess after 36 hours of antibiotics. The ESR to continues to trend higher. C-reactive protein as well. Today I recommend surgical intervention for incision, irrigation and debridement. We discussed the risk-benefit surgery in detail. The risks discussed include but not limited to persistent infection, neurovascular injury, arthrofibrosis of the MP or IP joints, need for repeat surgery, wound healing complications, pain symptoms, and complications related anesthesia. After discussion, he was interested in proceeding with surgery today. Informed consent was obtained at the bedside witnessed by nursing staff. We will proceed to the OR when available. Present on Admission?: Yes Admission and Anticipated Discharge Date Admission Date: November 28, 2019 Subjective Hair reports that his pain is very tolerable. He is pleased that the erythema has receded in his arm and most of a forearm. Unfortunately, he agrees that his finger has not improved substantially in the last 24 hours with IV antibiotics and soft tissue rest. He denies any fevers or chills. His appetite is been okay. Is been n.p.o. since midnight last night. Review of Systems Review of Systems: All systems reviewed & are unremarkable except as noted in HPI & below Physical Exam Physical Exam: Right upper extremity: There is no erythema in his arm or forearm. He is a well dressed former IV site in the antecubital fossa. His right index finger remains with increased circumference and focal tenderness throughout the palmar aspect. His PIP joint is also quite tender circumferentially. He has pain along the palmar aspect and the flexor tendon anatomy with passive range of motion of his PIP joint. He has no pain with passive flexion extension of the wrist. He remains tender along the course of t he flexor tendon sheath. He also has some tenderness in the collar-button area between the second and third ray. He is otherwise neurovascular intact. He is blanching erythema throughout the index finger from the MP joint distal. Constitutional: well developed and well nourished; no acute distress and not intoxicated appearing ENMT: external ear and nose normal, oropharynx normal Respiratory: normal respiratory effort; no respiratory distress Cardiovascular: Extremities: normal capillary refill; no edema Skin: no rashes, warm and dry Psychiatric: A+Ox3, euthymic affect Results & Data ([facility]) Vital Signs (Past 12 Hours) Vital Signs Temp Pulse Resp BP Pulse Ox 11/29/19 07:28 37.4 C 73 18 142/77 H 96 11/28/19 23:10 37.5 C 80 12 131/73 97 Laboratory Tests 11/27/19 11/29/19 11/29/19 22:25 05:00 05:00 ESR 18 H 29 H C-Reactive Protein 6.14 H PG Care Time/CCT Total # of Minutes Spent Total Time Spent with Patient: Total time spent is greater than 50% in coordination of care (as documented) at patient's floor/unit and/or counseling patient: Coding Level of Care Code None Diagnoses Cellulitis of finger of right hand L03.011
[2019-11-29] MEDS ORDERED: BACITRACIN INJ 50,000 UNIT VIAL ONE (09:28)
[2019-11-29] MEDS ORDERED: KETOROLAC 30 MG/ML VIAL ONE (11:05)
[2019-11-29] MEDS ORDERED: ROCURONIUM BROMIDE 10 MG/ML 5 ML VIAL IV ONE (11:06)
[2019-11-29] MEDS ORDERED: ACETAMINOPHEN 500 MG TAB PO PRN (11:19)
[2019-11-29] MEDS ORDERED: OXYCODONE HCL IR 5 MG TAB (IMMEDIATE RELEASE) PO PRN (11:19)
[2019-11-29] MEDS ORDERED: ACETAMINOPHEN 325 MG TAB PO PRN (11:19)
[2019-11-29] MEDS ORDERED: HYDROmorphone INJ 0.5 MG/0.5 ML SYR IV PRN (11:19)
--- NOTE | 2019-11-29 11:19 | Post Operative Brief Note ---
PG Immediate Post Op with CF Date of Surgery November 29, 2019 Pre & Post Diagnosis Operation Date: 11/29/19 10:50 Pre-Op Diagnosis: RIGHT INDEX FINGER INFECTION Post-Op Diagnosis: RIGHT INDEX FINGER INFECTION I identified the patient and participated in the time-out.: Yes Procedure Operation Date: 11/29/19 10:50 Actual Procedures p Right Index Finger Incision and Drainage(Right) - Aquilino Love Surgeon Aquilino Love Deburr Technician German Lundy PA-c Estimated Blood Loss 5 Findings See Below Specimens Specimen Description: 1. Right index finger flexor tendon 2. Right index finger flexor tendon 3. Inter meta carpal swab right index finger
--- NOTE | 2019-11-29 11:32 | Operative Report ---
PG Post Operative Report Pre & Post Diagnosis Operation Date: 11/29/19 10:50 Pre-Op Diagnosis: RIGHT INDEX FINGER INFECTION Post-Op Diagnosis: RIGHT INDEX FINGER INFECTION I identified the patient and participated in the time-out.: Yes Procedure Operation Date: 11/29/19 10:50 Actual Procedures p Right Index Finger Incision and Drainage(Right) - Aquilino Love Surgeon Aquilino Love Flow Floor Attendant German Lundy PA-c Estimated Blood Loss 5 Findings See Below Volar approach to the index finger flexor sheath was performed. There were no areas of purulence encountered. There was a substantial amount of synovial fluid within the sheath but no gross purulence. We did get swab cultures of the tenosynovial fluid. Given the appearance, I did not think a counterincision at the A1 aftab was necessary. A 14-gauge catheter was passed easily down to the palmar level. Thorough irrigation was performed. A counterincision at the 23 interspace collar-button area was made. Dissection revealed no purulence. A swab culture was taken here as well. Specimens 3 swab culture specimens. 2 from the flexor tendon sheath and one from the intermetacarpal space. Drains None Anesthesia Type General Complications none Disposition Accompanied Patient To Recovery: No Disposition: Recovery Room Indications 39-year-old male who been admitted for over 36 hours with a swollen, painful and erythematous dominant hand right index finger that failed to respond to parenteral antibiotics during his inpatient admission. Symptoms began with a splinter injury in the palmar aspect of his proximal phalanx. He had persistent signs of flexor tenosynovitis with tenderness along the course of the tendon sheath. He had waxing and waning edema throughout the finger but no fusiform swelling. In addition he had persistent pain at the 23 interspace at the collar-button area. There was edema in this area as well. Given his lack of progression, I recommended surgical exploration for irrigation debridement for concern of flexor tenosynovitis that was not being improved by antibiotics. We discussed the risks and benefits, as outlined in my progress note. Informed consent was obtained at the bedside. Description of Procedure On the day of surgery, the patient was greeted in the preoperative holding area. The informed consent was reviewed and confirmed by myself and the patient. The patient identified the surgical site and was marked by me. The patient was then turned over to anesthesia. He was taken to have been placed supine on the OR table. Anesthesia was induced. Right extremities and prepped and draped for hand irrigation debridement. Surgical timeout was called by the circular nurse and verified all present. Antibiotics been infused on the floor, as scheduled. Volar Conchita approach to the index finger was carried out. Dissection was performed with hemostasis achieved electrocautery. The flexor tendon sheath was revealed. A small transverse incision through the peritenon was made. This allowed reflux of a moderate amount of healthy-appearing synovial fluid. This fluid was swabbed on 2 separate culture swabs. The incision was thoroughly irrigated. A 14-gauge Angiocath was then used to traverse the flexor tendon towards the palm. There was no significant resistance. The Angiocath was used to irrigate in a retrograde fashion. Given the appearance of the tendon sheath, I did not feel the need to do a counterincision for irrigation. I dissected medially to ensure is no pockets of fluid in the mid axial spaces. A 22-gauge needle was used to access the proximal interphalangeal joint for the dorsal side given some swelling. No fluid was obtained. The pocket of swelling in his 23 distal interspace in the collar-button area was then marked. A 1 cm skin incision was made over this longitudinally. Tenotomy scissor was used to dissect into the space. No purulence was encountered. A swab was taken of the space as well. We then thoroughly irrigated the wounds with 1 L of normal saline with bacitracin. The dorsal and palmar wounds were then approximated using simple 3- 0 nylon suture. Wounds are dressed with sterile Xeroform, sterile gauze, and a dorsal lockett splint was applied. Patient tolerated suture well, is active in the operating without complication, transferred to the PACU in stable condition. Disposition: He will remain an inpatient to finish at least 24 hours of additional parenteral antibiotics. I will take the dressing down on postop day 1 to evaluate his progress. We will evaluate the cultures and hopefully discharge him when possible to on oral antibiotic regimen. He will have close clinic follow-up with orthopedics. Physician data entry assistant attestation: German Lundy PA-C was present and scrubbed for the duration of the case. He was essential to prepping/draping, patient positioning, retraction, and assistan ce with wound closure. In addition he placed the splint. I attest to the content of the Intraoperative Record and any orders documented therein. Any exceptions are noted below.
[2019-11-29] MEDS: fentaNYL citrate 100 MCG/2 ML VIAL IV PRN ×4 (11:33→11:48)
[2019-11-29] MEDS ORDERED: CEFAZOLIN 2000MG 2,000 MG/15 ML SYR IV ONE (11:45)
[2019-11-29] MEDS: HYDROmorphone INJ 0.5 MG/0.5 ML SYR IV PRN ×2 (12:26→15:42)
[2019-11-29] MEDS ORDERED: Nursing to Pharmacy Communication SCH (12:45)
[2019-11-29] MEDS ORDERED: INSULIN ASPART 100 UNITS/ML 3 ML PEN SC ONE (13:00)
--- NOTE | 2019-11-29 13:47 | Anesthesiology Progress Note ---
Date of Service November 29, 2019 Anesthesia Post Procedure Vital Signs Vital Signs: Temp Pulse Pulse Pulse Resp BP BP 11/29/19 13:14 36.9 C 82 16 129/84 11/29/19 12:48 37.2 C 91 H 16 139/85 11/29/19 12:15 37.1 C 84 16 121/75 11/29/19 12:00 36.6 C 76 18 129/74 11/29/19 11:50 66 18 131/73 11/29/19 11:40 72 18 145/77 H 11/29/19 11:30 77 20 138/79 11/29/19 11:20 36.5 C 104 H 18 132/81 11/29/19 09:39 95 H 18 136/85 11/29/19 07:28 37.4 C 73 18 142/77 H 11/28/19 23:10 37.5 C 80 12 131/73 11/28/19 15:12 37.3 C 74 18 127/77 Pulse Ox 11/29/19 13:14 94 11/29/19 12:48 11/29/19 12:15 95 11/29/19 12:00 98 11/29/19 11:50 96 11/29/19 11:40 95 11/29/19 11:30 100 11/29/19 11:20 95 11/29/19 09:39 98 11/29/19 07:28 96 11/28/19 23:10 97 11/28/19 15:12 97 Pain Intensity Right 2nd Digit: Pain Intensity: 9 Transfer of Care Handoff Completed per policy Notes Mental Status: alert / awake / arousable and participated in evaluation Patient Amnestic to Procedure: Yes Nausea / Vomiting: adequately controlled Pain: adequately controlled Airway Patency, RR, SpO2: stable & adequate BP & HR: stable & adequate Hydration State: stable & adequate Anesthetic Complications: no major complications apparent and Pt Satisfied with anesthetic care
[2019-11-29] MEDS: INSULIN ASPART 100 UNITS/ML 3 ML PEN SC SCH ×2 (17:43→21:14)
[2019-11-29] MEDS: INSULIN GLARGINE SOLOSTAR 100 UNITS/ML 3 ML PEN SC SCH (21:10)
[2019-11-29] MEDS: OXYCODONE HCL IR 5 MG TAB (IMMEDIATE RELEASE) PO PRN (21:19)
[2019-11-30] MEDS: LEVOTHYROXINE SODIUM 200 MCG TABLET PO SCH (06:05)
[2019-11-30] MEDS: OXYCODONE HCL IR 5 MG TAB (IMMEDIATE RELEASE) PO PRN ×4 (06:06→20:26)
[2019-11-30 07:03] LABS: Basophils # (auto) 0.02 K/uL (0-0.2); Basophils % (auto) 0.2 %; Eosinophils % (auto) 2.4 %; Hematocrit (blood only) 33.7 % (42-52); Hemoglobin 11.1 g/dL (14.0-18.0); Immature Granulocytes # (auto) 0.02 K/uL (0.00-0.02); Immature Granulocytes % (auto) 0.2 %; Lymphocytes % (auto) 21.6 %; Mean Corpuscular Hemoglobin 29.3 pg (25-34); Mean Corpuscular Hgb Conc 32.9 g/dL (32-36); Mean Corpuscular Volume 88.9 fL (80-100); Mean Platelet Volume 10.3 fL (7.4-10.4); Monocytes # (auto) 0.79 K/uL (0.11-0.59); Monocytes % (auto) 9.5 %; Neutrophils # (auto) 5.51 K/uL (1.4-6.5); Neutrophils % (auto) 66.1 %; Platelet Count 201 K/uL (130-400); RDW Coefficient of Variation 13.2 % (11.5-14.5); RDW Standard Deviation 43.2 fL (36.4-46.3); Red Blood Count 3.79 M/uL (4.7-6.1); White Blood Count 8.34 K/uL (4.8-10.8)
[2019-11-30 07:29] LABS: Albumin Level 2.7 gm/dl (3.4-5.0); BUN Creatinine Ratio 10.4 (10-20); Calcium 8.4 mg/dl (8.5-10.1); Creatinine Clr Calc Pharmacy 157.8 ml/min; Est GFR (African American) 127.8; Est GFR (Non-African American) 110.3; Potassium 3.8 mmol/L (3.5-5.1)
[2019-11-30 07:32] LABS: Albumin Globulin Ratio 0.7 (0.9-2); Bilirubin,Total 0.5 mg/dl (0.2-1); Globulin 4.1 gm/dl (2.5-4.0); Total Protein 6.8 gm/dl (6.4-8.2)
[2019-11-30] MEDS: SENNA 8.6 MG TAB PO SCH (07:58)
[2019-11-30] MEDS: PIPERACILLIN/TAZOBACTAM 3.375 GM in DEXTROSE 5% 100 ML IV SCH ×2 (07:58→15:59)
[2019-11-30] MEDS: MAGNESIUM OXIDE 400 MG TAB PO SCH (07:58)
[2019-11-30] MEDS: INSULIN ASPART 100 UNITS/ML 3 ML PEN SC SCH ×4 (08:43→22:02)
[2019-11-30] MEDS ORDERED: PHARMACY GLYCEMIC MGMT CONSULT PRN (11:11)
[2019-11-30] MEDS ORDERED: INSULIN GLARGINE SOLOSTAR 100 UNITS/ML 3 ML PEN SC ONE (11:30)
--- NOTE | 2019-11-30 14:29 | Pharmacy Report ---
Pharmacy Glycemic Short Note 2 - Date of Service November 30, 2019 - Glycemic Short BSG Results (Last 24 hours): 11/29/19 11/29/19 11/30/19 17:07 20:27 06:50 Glucose 201 H POC Glucose 278 H 263 H 11/30/19 11/30/19 11/30/19 07:05 08:12 12:19 Glucose POC Glucose 191 H 196 H 206 H OUTPATIENT ANTIDIABETIC REGIMEN: * Lantus 50 units SQ qHS * Novolog SSI (carb ratio ~ 1:6) * HbA1c: 8.0% (11/28/19) ASSESSMENT: * Mr Armstrong is a 39yo Type 1 diabetic male, admitted with a finger infection. He is POD #1 s/p I&D in the OR. * BSGs have been elevated post-op, most likely due to a basal insulin deficit and Novolog parameters that were not as aggressive as his parameters at home. * Small supplemental dose of Lantus was ordered this morning in an attempt to correct some of the basal deficit (pt received only a half dose of Lantus on 11/27), however pt refused this dose. * Novolog parameters adjusted to more closely resemble patient's use at home, and he was satisfied with this change. PLAN FOR INPATIENT GLYCEMIC CONTROL: * Basal insulin * Lantus 50 units SQ qHS * Bolus insulin * NovoLog per scale ACHS or Q6hrs while NPO * Goal Range: Low 110 mg/dL - High 140 mg/dL * Correction Factor: 15 mg/dL/unit * Nutritional / Prandial insulin per carb ratio of 1 unit per 6 grams CHO consumed PLAN FOR DISCHARGE: * Patient's A1c (8.0%) indicates slightly sub-optimal glycemic control. * Goal A1c is less than 7%, based on age and comorbidities. * Suspect that patient may resume home regimen on discharge, as long as he does not report having episodes of hypoglycemia. * Recommend f/u with outpt provider to further optimize A1c.
--- NOTE | 2019-11-30 17:13 | Hospitalist Progress Note ---
Date of Service November 30, 2019 Assessment & Plan (1) Cellulitis of finger of right hand: Assessment & Plan (1) Cellulitis of finger of right hand: Cellulitis of finger of right hand due to superficial foreign body of right index finger -as per history and physical "A 39-year-old male with past medical history significant for type 1 diabetes, hypothyroidism, Lyme disease, who presents with a right index finger infection. The patient was working on the floor of the house when he had a splinter injury to his right index finger last Thursday." s/p Incision and Drainage -Patient is s/p p Right Index Finger Incision and Drainage(Right) by orthopedic Dr. Aquilino Love on 11/29/2019 -Doing well overall post procedure Pain well controlled Afebrile, no leukocytosis Initial wound cultures growing MSSA and group A beta strep Blood cultures negative Cultures from I&D: Pending, follow-up May discharge to home when cleared by orthopedic service this evening Discharge plan: Augmentin 875 mg every 12 hours x10 days Probiotics x2 weeks Oxycodone as needed for pain Tylenol 1 g twice a day times at least 5 days Follow-up with orthopedic service Dr. Love as directed Follow-up with PCP next week per discharge instructions (2) Type 1 diabetes mellitus: Continue usual regimen at home (3) Hypothyroidism: -continue home dose levothyroxine Plan of care discussed with patient in detail and at length All questions were answered He is understanding, agreeable, comfortable with plan of care Deep venous thrombosis prophylaxis, sequential compression devices. Full Code Patient has a primary care appointment scheduled for 12/05/2019 2:00 PM Provider Philipp Linder III, MD Department [facility] Admission and Anticipated Discharge Date Admission Date: November 29, 2019 Subjective Follow-up for right hand, index finger cellulitis Seen resting in bed, comfortable, in good spirits, very pleasant States he continues to feel better overall Right hand/finger pain adequately controlled Denies fevers or chills No shortness of breath, chest pain, palpitations, abdominal pain, nausea vomiting No other symptoms States he is ready for discharge today if cleared by Ortho Review of Systems Review of Systems: All systems reviewed & are unremarkable except as noted in Subjective Physical Exam Physical Exam: General- oriented x 3, not in distress, speaks in sentences wit h no effort or accessory muscle use Eyes- anicteric Neck- no JVD Lungs- clear breath sounds bilaterally, no rales/wheezes Heart- normal rate, regular rhythm; no murmurs Abdomen- normal bowel sounds, nondistended, soft, nontender Extremities- Right hand: Heavy dressing in place, no edema of the thumb in the last 2 digits with good range of motion, no edema of the forearm, no erythema or streaking, no tenderness no pretibial edema, no calf tenderness Neuro- alert, oriented x 3; no gross focal neurologic deficits Skin- warm & dry Results & Data Results & Data ([facility]) Vital Signs (Past 12 Hours) Vital Signs Temp Pulse Resp BP Pulse Ox 11/30/19 15:12 36.7 C 69 18 142/89 H 97 11/30/19 07:48 37.0 C 74 16 143/80 H 96 Laboratory Results Laboratory Results - last 24 hr 11/29/19 11/29/19 11/30/19 17:07 20:27 06:50 WBC 8.34 RBC 3.79 L Hgb 11.1 L Hct 33.7 L MCV 88.9 MCH 29.3 MCHC 32.9 RDW Std Deviation 43.2 RDW Coeff of Rajwinder 13.2 Plt Count 201 MPV 10.3 Immature Gran % (Auto) 0.2 Neut % (Auto) 66.1 Lymph % (Auto) 21.6 Emanuel % (Auto) 9.5 Eos % (Auto) 2.4 Baso % (Auto) 0.2 Neut # (Auto) 5.51 Lymph # (Auto) 1.80 Emanuel # (Auto) 0.79 H Eos # (Auto) 0.20 Baso # (Auto) 0.02 Immature Gran # (Auto) 0.02 Sodium Potassium Chloride Carbon Dioxide Anion Gap BUN Creatinine Est Cr Clr Drug Dosing Est GFR ( Amer) Est GFR (Non-Af Amer) BUN/Creatinine Ratio Glucose POC Glucose 278 H 263 H Calcium Total Bilirubin AST ALT Alkaline Phosphatase Total Protein Albumin Globulin Albumin/Globulin Ratio 11/30/19 11/30/19 11/30/19 06:50 07:05 08:12 WBC RBC Hgb Hct MCV MCH MCHC RDW Std Deviation RDW Coeff of Rajwinder Plt Count MPV Immature Gran % (Auto) Neut % (Auto) Lymph % (Auto) Emanuel % (Auto) Eos % (Auto) Baso % (Auto) Neut # (Auto) Lymph # (Auto) Emanuel # (Auto) Eos # (Auto) Baso # (Auto) Immature Gran # (Auto) Sodium 137 Potassium 3.8 Chloride 102 Carbon Dioxide 28 Anion Gap 7.0 BUN 9 Creatinine 0.84 Est Cr Clr Drug Dosing 157.8 Est GFR ( Amer) 127.8 Est GFR (Non-Af Amer) 110.3 BUN/Creatinine Ratio 10.4 Glucose 201 H POC Glucose 191 H 196 H Calcium 8.4 L Total Bilirubin 0.5 AST 15 ALT 19 Alkaline Phosphatase 71 Total Protein 6.8 Albumin 2.7 L Globulin 4.1 H Albumin/Globulin Ratio 0.7 L 11/30/19 12:19 WBC RBC Hgb Hct MCV MCH MCHC RDW Std Deviation RDW Coeff of Rajwinder Plt Count MPV Immature Gran % (Auto) Neut % (Auto) Lymph % (Auto) Emanuel % (Auto) Eos % (Auto) Baso % (Auto) Neut # (Auto) Lymph # (Auto) Emanuel # (Auto) Eos # (Auto) Baso # (Auto) Immature Gran # (Auto) Sodium Potassium Chloride Carbon Dioxide Anion Gap BUN Creatinine Est Cr Clr Drug Dosing Est GFR ( Amer) Est GFR (Non-Af Amer) BUN/Creatinine Ratio Glucose POC Glucose 206 H Calcium Total Bilirubin AST ALT Alkaline Phosphatase Total Protein Albumin Globulin Albumin/Globulin Ratio
--- NOTE | 2019-11-30 17:39 | Discharge Summary ---
Date of Service November 30, 2019 Admission HPI Per Admitting Provider CHIEF COMPLAINT: Right index finger infection. HISTORY OF PRESENT ILLNESS: A 39-year-old male with past medical history significant for type 1 diabetes, hypothyroidism, Lyme disease, who presents with a right index finger infection. The patient was working on the floor of the house when he had a splinter injury to his right index finger last Thursday. He was keeping an eye on it. He was also working on the bathrooms . Yesterday the finger got swollen and he was having pain and also felt some chills and nausea, so he came to the ER. Evaluated by ortho, recommended IV antibiotics and to be evaluated in the a.m. and if not getting better, plan for I and D in the a.m. He received Toradol. Currently, pain is under control. Resting comfortably and hemodynamically stable. Denies any other complaints. The nausea is improved. No fevers, no chest pain, no shortness of breath, no cough, no headache, no blurred vision, no earache, no runny nose, no sore throat, no dysphagia, no abdominal pain. Normal bowel and bladder movements. No rashes. No edema. Admission Exam Per Admitting Provider GENERAL: The patient is of moderate build, not in acute distress. VITAL SIGNS: Temperature 37.3, pulse 90, respiratory rate 18, blood pressure 147/87, oxygen 97% on room air. HEENT: No pallor. Pupils equal, round, reactive to light. Oral mucosa moist. NECK: No neck masses seen. CARDIOVASCULAR: S1, S2 heard, regular rate and rhythm, no murmur, no gallop. RESPIRATORY SYSTEM: Normal AP diameter. No accessory muscle use. No wheezing, no crackles. ABDOMEN: Soft, bowel sounds present, nontender. No distention. CENTRAL NERVOUS SYSTEM: Cranial nerves II-XII grossly intact, nonfocal. EXTREMITIES: Right hand and arm is in dressing and wrapped. No edema or erythema seen in the lower extremity. Principal Diagnosis RIGHT INDEX FINGER, RIGHT HAND CELLULITIS Discharge Exam General- oriented x 3, not in distress, speaks in sentences with no effort or accessory muscle use Eyes- anicteric Neck- no JVD Lungs- clear breath sounds bilaterally, no rales/wheezes Heart- normal rate, regular rhythm; no murmurs Abdomen- normal bowel sounds, nondistended, soft, nontender Extremities- Right hand: Heavy dressing in place, no edema of the thumb in the last 2 digits with good range of motion, no edema of the forearm, no erythema or streaking, no tenderness no pretibial edema, no calf tenderness Neuro- alert, oriented x 3; no gross focal neurologic deficits Skin- warm & dry Discharge Data Allergies Allergy/AdvReac Type Severity Reaction Status Date / Time No Known Allergies Allergy Unverified 11/28/19 00:15 Procedures Performed Operation Date: 11/29/19 10:50 Actual Procedures p Right Index Finger Incision and Drainage(Right) - Aquilino Love XR finger(s) RT min 2V CLINICAL HISTORY: Infection. Possible foreign body. COMPARISON: None. DISCUSSION: There is soft tissue swelling. No fractures are visualized. No foreign bodies are delineated. There are no destructive lesions. IMPRESSION: 1. No acute fractures 2. No radiopaque foreign bodies identified 3. Soft tissue swelling Hospital Course (1) Cellulitis of finger of right hand: Assessment & Plan (1) Cellulitis of finger of right hand: -as per history and physical "A 39-year-old male with past medical history significant for type 1 diabetes, hypothyroidism, Lyme disease, who presents with a right index finger infection. The patient was working on the floor of the house when he had a splinter injury to his right index finger last Thursday." -Patient is s/p p Right Index Finger Incision and Drainage(Right) by orthopedic Dr. Aquilino Love on 11/29/2019 -Doing well overall post procedure Pain well controlled Afebrile, no leukocytosis Initial wound cultures growing MSSA and group A beta strep Blood cultures negative Cultures from I&D: Pending, follow-up may discharge home per Dr. Love- Orthopedic Surgeon, discussed case with him Discharge plan: Augmentin 875 mg every 12 hours x 10 days Probiotics x2 weeks Oxycodone as needed for pain Tylenol 1 g twice a day times at least 5 days Follow-up with orthopedic service Dr. Love day after discharge Follow-up with PCP next week per discharge instructions (2) Diarrhea - 2-3 episodes on the day of discharge - no fever/chills, abdominal pain - C diff: pending will follow results (3) Type 1 diabetes mellitus: Continue usual regimen at home (4) Hypothyroidism: -continue home dose levothyroxine Plan of care discussed with patient in detail and at length All questions were answered He is understanding, agreeable, comfortable with plan of care Deep venous thrombosis prophylaxis, sequential compression devices. Full Code Patient has a primary care appointment scheduled for 12/05/2019 2:00 PM Provider Philipp Linder III, MD [facility] Total Time Total Time Spent Total Time Spent (In Minutes): 45 minutes Discharge Plan Discharge Items Patient Disposition: Home - Self-Care Reason For Visit: RIGHT INDEX FINGER INFECTION Discharge Diagnosis: Cellulitis of finger of right hand due to superficial foreign body of right index finger Type 1 diabetes mellitus Hypothyroidism Condition on Discharge: Good Activity: Resume your previous activity Driving/Machine Use: No driving until allowed by primary care physician and orthopedic surgeon Non-emergency contact: Primary Care Provider Call non-emergency contact if: you have any medication questions, your symptoms worsen, your pain is not controlled, your pain is worsening, your pain is unusual for you, your pain is concerning for you, you have a fever, your wound has increased redness, your wound has increased drainage and your wound pain has increased Follow-up/Referrals: Aquilino Love [Surgeon] - Philipp Linder MD [Primary Care Provider] - 12/05/19 2:00 pm Diet: Carb Consistent or DM2 Addtl Attending Provider Instructions: Please review your new medication list and follow instructions carefully. Your new medications include: Augmentin-antibiotic for right hand infection Culturelle-probiotics to prevent C. difficile diarrhea which can be acquired while on antibiotic regimen Oxycodone-narcotic for severe pain Tylenol-take 1000 mg twice a day for at least 5 days, for steady pain control Do not take more than 3000 mg of Tylenol per 24 hours Drink plenty of water. Oxycodone may make you constipated. Take a laxative daily as needed. No driving while taking Oxycodone. Watch out for diarrhea, if present contact your primary care physician immediately to be tested for C. difficile diarrhea. Please follow Dr. Aquliino Love's discharge instructions. Follow-up with Dr. Love tomorrow. Contact information outlined above. Please follow-up with primary care physician : 12/05/2019 2:00 PM Provider Philipp Linder III, MD [facility] Call Dr. Love or Dr. Linder or return to the ER immediately if with recurrence of symptoms, including Increasing right hand or arm pain, swelling, redness, discharge, Fevers or chills, nausea/ vomiting, weakness, Persistent Diarrhea. Pending Studies at Discharge: Yes Studies:: Wound Culture results from incision and drainage of the right index finger dated 11/29/2019 Stand-Alone Forms: My [facility], Smoking Cessation Medications and DC Order Prescriptions: New amoxicillin-pot clavulanate [Augmentin] 875-125 mg tablet 1 tab PO Q12H Qty: 20 RF: 0 Culturelle 10 billion cell capsule 1 cap PO DAILY Qty: 30 RF: 0 acetaminophen 500 mg Tablet 1,000 mg PO BID 5 Days Qty: 20 RF: 0 oxycodone 5 mg Tablet 5 - 10 mg PO Q4H PRN (Reason: pain) Qty: 20 RF: 0 Continued levothyroxine 200 mcg tablet 200 mcg PO QAM RF: 0 levothyroxine 200 mcg tablet 100 mcg PO WK RF: 0 Lantus Solostar U-100 Insulin 100 unit/mL (3 mL) insulin pen 50 unit SUBCUT HS RF: 0 insulin aspart U-100 [Novolog Flexpen U-100 Insulin] 100 unit/mL (3 mL) insulin pen 0 unit SUBCUT AC RF: 0 Discharge Orders: Discharge Order (Routine); Ordered 12/01/19 Ordered By: Cirilo Patel Admission Data Admit Date/Time: 11/29/19 14:02 Attending Provider: Cirilo Patel Admit Provider: Lucien Alvarado Primary Care Provider: Philipp Linder Other Providers: Gonzalo Santillan Other Interventions: Discharge Summary Assessment (RN) Last Done: 12/01/19 13:58
--- NOTE | 2019-11-30 18:40 | Orthopedic Progress Note ---
Date of Service November 30, 2019 Assessment & Plan (1) Cellulitis of finger of right hand: Making progress finally at POD1 from I&D and change to Zosyn for past 24hrs - by 1999. Given the persistent erythema, would prefer at least 36 hours of parenteral. I'm unconvinced of flexor tenosynovitis component but it should be treated as such. OK to discharge at 0800 Zosyn dose. Oral abx per Med Team - much appreciated. Continue splint and elevation. Splint can be unwrapped by primary team for exam, if desired. I will see him for another wound check tomorrow in hospital and Thursday in clinic. Continue oxyIR for pain - will need 1-2 days supply upon discharge. Present on Admission?: Yes Admission and Anticipated Discharge Date Admission Date: November 29, 2019 Subjective Reports tolerable pain with medications. Good appetite. One loose stool after stool softeners. Tolerating abx otherwise. Trying to elevate. Review of Systems Review of Systems: All systems reviewed & are unremarkable except as noted in HPI & below Physical Exam Physical Exam: RUE: splint taken down. Persistent but improving erythema on ulnar half of index finger. Blister formation dorsally - consistent with decompression cellulitis component. Painful ROM, as expect. DNVI. Constitutional: WD/WN, vitals as above well developed, well nourished and + well hydrated; no acute distress Results & Data ([facility]) Vital Signs (Past 12 Hours) Vital Signs Temp Pulse Resp BP Pulse Ox 11/30/19 15:12 36.7 C 69 18 142/89 H 97 11/30/19 07:48 37.0 C 74 16 143/80 H 96 WBC equivocal bump ESR and CRP... PG Care Time/CCT Total # of Minutes Spent Total Time Spent with Patient: Total time spent is greater than 50% in coordination of care (as documented) at patient's floor/unit and/or counseling patient: Coding Level of Care Code None Diagnoses Cellulitis of finger of right hand L03.011
[2019-11-30] MEDS: INSULIN GLARGINE SOLOSTAR 100 UNITS/ML 3 ML PEN SC SCH (22:03)
[2019-12-01] MEDS: PIPERACILLIN/TAZOBACTAM 3.375 GM in DEXTROSE 5% 100 ML IV SCH ×2 (00:15→07:56)
[2019-12-01] MEDS: LEVOTHYROXINE SODIUM 200 MCG TABLET PO SCH (06:47)
[2019-12-01] MEDS: MAGNESIUM OXIDE 400 MG TAB PO SCH (08:12)
[2019-12-01] MEDS: SENNA 8.6 MG TAB PO SCH (08:12)
--- NOTE | 2019-12-01 10:14 | Pharmacy Report ---
Pharmacy Glycemic Short Note 2 - Date of Service December 01, 2019 - Glycemic Short BSG Results (Last 24 hours): 11/30/19 11/30/19 11/30/19 12:19 17:08 20:21 POC Glucose 206 H 192 H 217 H 12/01/19 08:07 POC Glucose 85 OUTPATIENT ANTIDIABETIC REGIMEN: * Lantus 50 units SQ qHS * Novolog SSI (carb ratio ~ 1:6) * HbA1c: 8.0% (11/28/19) ASSESSMENT: 11/30: * Pt has received 83 units of insulin over the past 24hrs * 50 units of basal insulin with Lantus (outpatient dose) * 33 units of bolus insulin with NovoLog * AM fasting BSG is below goal range at 85 mg/dl --> will decrease basal insulin by 20% * Post-prandial BSGs were elevated yesterday despite tightening CF/CR. Will not change/tighten today as the extra basal on board will be covering some prandial needs. * Tight glycemic control is crucial for wound healing. 11/29: * Mr Armstrong is a 39yo Type 1 diabetic male, admitted with a finger infection. He is POD #1 s/p I&D in the OR. * BSGs have been elevated post-op, most likely due to a basal insulin deficit and Novolog parameters that were not as aggressive as his parameters at home. * Small supplemental dose of Lantus was ordered this morning in an attempt to correct some of the basal deficit (pt received only a half dose of Lantus on 11/27), however pt refused this dose. * Novolog parameters adjusted to more closely resemble patient's use at home, and he was satisfied with this change. PLAN FOR INPATIENT GLYCEMIC CONTROL: * Basal insulin: decrease by 20% * Lantus 40 units SQ qHS * Bolus insulin: no change * NovoLog per scale ACHS or Q6hrs while NPO * Goal Range: Low 110 mg/dL - High 140 mg/dL * Correction Factor: 15 mg/dL/unit * Nutritional / Prandial insulin per carb ratio of 1 unit per 6 grams CHO consumed PLAN FOR DISCHARGE: * Patient's A1c (8.0%) indicates slightly sub-optimal glycemic control. * Goal A1c is less than 7%, based on age and comorbidities. * Suspect that patient may resume home regimen on discharge, as long as he does not report having episodes of hypoglycemia. * Recommend f/u with outpt provider to further optimize A1c.
[2019-12-01] MEDS: INSULIN ASPART 100 UNITS/ML 3 ML PEN SC SCH ×3 (11:02→12:49)
[2019-12-01] MEDS ORDERED: INSULIN GLARGINE SOLOSTAR 100 UNITS/ML 3 ML PEN SC SCH (21:00)
[2019-12-04] MEDS ORDERED: LEVOTHYROXINE SODIUM 100 MCG TABLET PO SCH (06:30)
== END 2019-12-01 15:00 | disposition home or self-care (01) ==
LOC: ED 22:10 → 3N 11-28 00:58 → INTOOBSV 11-28 00:58 → 3N 11-28 01:34 → SUATTDRO 11-29 14:02